=== PATIENT | male | born 1985 | race African-American/Black ===

== ENCOUNTER → 2016-05-14 14:45 | Emergency (ER) | payer OTHER | END | disposition home or self-care (01) | LOC: CFTX 14:45 | DX: S13.4XXA Sprain of ligaments of cervical spine, initial encounter (principal); V43.52XA Car driver injured in collision with other type car in traffic accident, initial encounter; Y92.410 Unspecified street and highway as the place of occurrence of the external cause | CPT/HCPCS: 99283 ==